=== PATIENT | male | born 1970 | race Caucasian/White ===

== ENCOUNTER 2021-04-16 06:26 | Emergency (ER) | payer BC ==
[2021-04-16 07:03] VITALS: BP 118/73; PULSE 79; TEMP 98.5; BMI 40.6
[2021-04-16] MEDS ORDERED: predniSONE 20 MG TABLET (UD) PO ONE (07:32)
[2021-04-16] MEDS ORDERED: predniSONE 20 MG TABLET (UD) ONE (07:57)
== END 2021-04-16 08:40 | disposition home or self-care (01) ==
LOC: JER 06:26
DX: R05.9 Cough, unspecified (principal)
CPT/HCPCS: 71046-TC-FY; 99283-25; C9803; U0003; U0005

== ENCOUNTER 2021-04-25 14:35 | Emergency (ER) | payer BC ==
[2021-04-25 15:25] VITALS: BP 148/95; PULSE 83; TEMP 98.4; BMI 40.6
[2021-04-25] MEDS ORDERED: ALBUTEROL SO4 2.5/IPRATROPIUM 0.5 INH SOL 3 ML VIAL.NEB. NEB ONE (16:47)
[2021-04-25] MEDS ORDERED: predniSONE 20 MG TABLET (UD) PO ONE (16:49)
[2021-04-25] MEDS ORDERED: predniSONE 20 MG TABLET (UD) ONE (16:50)
[2021-04-25] MEDS: ALBUTEROL SO4 2.5/IPRATROPIUM 0.5 INH SOL 3 ML VIAL.NEB. NEB SCH ×7 (18:07→18:08)
== END 2021-04-25 18:37 | disposition home or self-care (01) ==
LOC: JER 14:35
PROC: 3E0F7GC Introduction of Other Therapeutic Substance into Respiratory Tract, Via Natural or Artificial Opening (ICD-10-PCS; principal; 2021-04-25)
PROC: 3E0F7GC Introduction of Other Therapeutic Substance into Respiratory Tract, Via Natural or Artificial Opening (ICD-10-PCS; 2021-04-25)
DX: J06.9 Acute upper respiratory infection, unspecified (principal)
CPT/HCPCS: 99283-25

== ENCOUNTER 2021-05-14 03:37 | Emergency (ER) | payer BC ==
[2021-05-14 04:09] VITALS: BP 161/91; PULSE 89; TEMP 98.4; BMI 40.6
[2021-05-14] MEDS ORDERED: methylPREDNISolone NA SUCC 125 MG/2 ML VIAL IVPUSH ONE (04:13)
[2021-05-14] MEDS ORDERED: ALBUTEROL SO4 2.5/IPRATROPIUM 0.5 INH SOL 3 ML VIAL.NEB. NEB SCH (04:15)
[2021-05-14] MEDS ORDERED: ALBUTEROL SO4 2.5/IPRATROPIUM 0.5 INH SOL 3 ML VIAL.NEB. NEB ONE ×2 (04:31→04:59)
[2021-05-14] MEDS ORDERED: methylPREDNISolone NA SUCC 125 MG/2 ML VIAL ONE (04:31)
[2021-05-14 05:29] LABS: BASO % 0.8 % (0-2.0); EOS % 3.8 % (0-4.5); HEMATOCRIT 47.1 % (35.4-49); HEMOGLOBIN 16.3 GM/dL (11.7-16.9); LYMPH % 27.9 % (8-40); MCH 32.2 pg (25.7-33.7); MCHC 34.7 g/dl (32.0-35.9); MEAN CELL VOLUME 92.8 fl (80-96); MEAN PLT VOLUME 9.1 fl (7.5-11.1); MONO % 7.8 % (3.8-10.2); NEUT % 59.7 % (42.8-82.8); PLATELET COUNT 208 10^3/uL (134-434); RBC 5.07 M/mm3 (4.00-5.60); RDW 13.1 % (11.9-15.9); WHITE BLOOD COUNT 7.2 K/mm3 (4.0-10.0)
[2021-05-14 05:49] LABS: ALBUMIN 3.8 g/dl (3.4-5.0); BLOOD UREA NITROGEN 20.3 mg/dL (7-18)
[2021-05-14 05:53] LABS: TOT PROT 7.9 g/dl (6.4-8.2)
[2021-05-14 08:20] LABS: BILIRUBIN,TOTAL 0.6 mg/dL (0.2-1)
== END 2021-05-14 06:17 | disposition home or self-care (01) ==
LOC: JER 03:37
PROC: 3E0F7GC Introduction of Other Therapeutic Substance into Respiratory Tract, Via Natural or Artificial Opening (ICD-10-PCS; principal; 2021-05-14)
PROC: 3E033GC Introduction of Other Therapeutic Substance into Peripheral Vein, Percutaneous Approach (ICD-10-PCS; 2021-05-14)
DX: R06.2 Wheezing (principal); R05.3 Chronic cough; Z11.52 Encounter for screening for COVID-19
CPT/HCPCS: 36415; 71046-TC-FY; 80053; 85025; 87807; 93005; 93010; 99285-25; C9803; U0003; U0005